=== PATIENT | female | born 1950 | race Caucasian/White ===

== ENCOUNTER → 2019-08-15 12:03 | Outpatient (BNVA) | payer OTHER, SELFPAY | PROVIDERS: Family Provider Family Medicine; Referring Provider Family Medicine; Visit Provider Specialist | DX: S82.832A Other fracture of upper and lower end of left fibula, initial encounter for closed fracture; W19.XXXA Unspecified fall, initial encounter | CPT/HCPCS: 73610 ==

== ENCOUNTER 2019-08-15 13:15 | Outpatient (CLI) | payer OTHER, SELFPAY | END 2019-08-15 13:16 | disposition home or self-care (01) | LOC: SPT 13:16 | PROVIDERS: Family Provider Family Medicine; Visit Provider Specialist | DX: Z46.89 Encounter for fitting and adjustment of other specified devices (principal); S82.62XD Displaced fracture of lateral malleolus of left fibula, subsequent encounter for closed fracture with routine healing; X58.XXXD Exposure to other specified factors, subsequent encounter | CPT/HCPCS: L4361 ==

== ENCOUNTER → 2019-09-02 07:59 | Outpatient (BNVA) | payer OTHER, SELFPAY | PROVIDERS: Family Provider Family Medicine; PCP Family Medicine; Visit Provider Specialist | DX: R29.90 Unspecified symptoms and signs involving the nervous system (principal); R20.0 Anesthesia of skin | CPT/HCPCS: 99204 ==

== ENCOUNTER → 2019-09-03 11:30 | Outpatient (BNVA) | payer OTHER, SELFPAY | PROVIDERS: Family Provider Family Medicine; PCP Family Medicine; Visit Provider Specialist | DX: S82.62XA Displaced fracture of lateral malleolus of left fibula, initial encounter for closed fracture; S82.832A Other fracture of upper and lower end of left fibula, initial encounter for closed fracture | CPT/HCPCS: 73610 ==

== ENCOUNTER 2019-09-03 13:12 | Outpatient (CLI) | payer OTHER, SELFPAY | END 2019-09-03 13:13 | disposition home or self-care (01) | LOC: SPT 13:12 | PROVIDERS: Family Provider Family Medicine; PCP Family Medicine; Visit Provider Specialist | DX: Z46.89 Encounter for fitting and adjustment of other specified devices (principal); S82.832D Other fracture of upper and lower end of left fibula, subsequent encounter for closed fracture with routine healing; X58.XXXD Exposure to other specified factors, subsequent encounter | CPT/HCPCS: L1902 ==

== ENCOUNTER 2019-09-27 10:52 | Outpatient (CLI) | payer OTHER, SELFPAY ==
--- NOTE | 2019-09-27 11:15 | MR_ITS ---
WS: [id number] MRI BRAIN WITHOUT CONTRAST HISTORY: TIA COMPARISON: None available. TECHNIQUE: Diffusion imaging, multiplanar T1, T2 and FLAIR imaging obtained. No evidence for acute infarct or hemorrhage. Lopez-white matter differentiation is normal. There are a few scattered T2 and FLAIR signal hyperintensities in the white matter which are appropriate for the patient's age. No remote or acute infarcts are volume loss. Ventricles and extra-axial spaces are normal. No inferior displacement of cerebellar tonsils. The sella turcica and pituitary gland are unremarkabl e. Posterior fossa is also unremarkable. Dural venous sinuses and [place] demonstrate no abnormality on this unenhanced studies. Paranasal sinuses: Clear. Mastoid air cells: Normal. Calvarium and scalp: Intact. MR/MR head wo con* [id number] IMPRESSION: 1. No evidence for an acute infarct. 2. Minimal, age-appropriate microvascular ischemic changes in the subcortical white matter.
--- NOTE | 2019-09-27 11:15 | MR_ITS ---
WS: [id number] MRA ANGIOGRAPHY [place] HISTORY: Transient ischemic attacks. Numbness LEFT foot. COMPARISON: None available. TECHNIQUE: 3-D MR angiography is performed of the [place]. All images are reviewed including source images. Distal vertebral and basilar arteries are intact with no significant stenosis or plaque. Posterior ce rebral arteries are normal course and caliber. Posterior communicating arteries are small caliber. RI GHT may be absent or hypoplastic. LEFT posterior communicating artery is small but patent. Intracranial portion of the internal carotid arteries are normal course and caliber. No significant a therosclerosis, stenosis or aneurysm identified. Middle and anterior cerebral arteries are both paten t with no significant disease. Anterior communicating artery is also normal. MR/MR angio head wo con [id number] IMPRESSION: Negative MR angiography of [place]. No stenosis, vasculitis or aneurys m.
== END 2019-09-27 10:53 | disposition home or self-care (01) ==
LOC: RADWPI 10:55
PROVIDERS: Family Provider Family Medicine; PCP Family Medicine; Visit Provider Specialist
DX: G45.9 Transient cerebral ischemic attack, unspecified (principal)
CPT/HCPCS: 70544; 70551

== ENCOUNTER → 2019-10-07 10:21 | Outpatient (BNVA) | payer OTHER, SELFPAY | PROVIDERS: Family Provider Family Medicine; PCP Family Medicine; Visit Provider Specialist | DX: S82.62XA Displaced fracture of lateral malleolus of left fibula, initial encounter for closed fracture (principal); S82.832A Other fracture of upper and lower end of left fibula, initial encounter for closed fracture; X58.XXXA Exposure to other specified factors, initial encounter | CPT/HCPCS: 73610 ==

== ENCOUNTER → 2019-11-20 10:46 | Outpatient (BNVA) | payer OTHER, SELFPAY | PROVIDERS: Family Provider Family Medicine; PCP Family Medicine; Visit Provider Specialist | DX: G45.9 Transient cerebral ischemic attack, unspecified (principal); R29.90 Unspecified symptoms and signs involving the nervous system | CPT/HCPCS: G0463 ==

== ENCOUNTER → 2020-02-04 09:59 | Outpatient (BNVA) | payer OTHER, SELFPAY | PROVIDERS: Family Provider Family Medicine; PCP Family Medicine; Visit Provider Specialist | DX: Z53.9 Procedure and treatment not carried out, unspecified reason (principal) | CPT/HCPCS: J1030; J3490 ==

== ENCOUNTER → 2020-02-04 13:49 | Outpatient (BNVA) | payer OTHER, SELFPAY | PROVIDERS: Family Provider Family Medicine; PCP Family Medicine; Visit Provider Specialist | DX: S82.832D Other fracture of upper and lower end of left fibula, subsequent encounter for closed fracture with routine healing (principal); X58.XXXD Exposure to other specified factors, subsequent encounter; G43.109 Migraine with aura, not intractable, without status migrainosus; M79.7 Fibromyalgia; Z86.73 Personal history of transient ischemic attack (TIA), and cerebral infarction without residual deficits | CPT/HCPCS: 20550; 82607; 82746; 83036; 83921; 84155; 84165; 84443; 85651; 95909; 99215; J1030; J3490 ==

== ENCOUNTER 2020-02-04 15:58 | Outpatient (CLI) | payer OTHER, SELFPAY ==
[2020-02-04 17:03] LABS: Thyroid Stimulating Hormone 1.54 uIU/mL (0.27-4.20); Vitamin B12 445 pg/mL (232-1245)
[2020-02-04 17:22] LABS: Folate Level 7.6 ng/mL (4.8-37.3)
[2020-02-04 17:56] LABS: Estmated Average Glucose 123; Hemoglobin A1C 5.9 % (4.0-6.0)
[2020-02-04 18:58] LABS: Erythrocyte Sedimentation Rate 36 mm/hr (0-15)
[2020-02-05 08:02] LABS: PROTEIN, TOTAL 6.9 g/dL (6.1-8.1)
[2020-02-05 15:02] LABS: ALBUMIN 3.6 g/dL (3.8-4.8); ALPHA 1 GLOBULIN 0.4 g/dL (0.2-0.3); ALPHA 2 GLOBULIN 0.8 g/dL (0.5-0.9); BETA 1 GLOBULIN 0.6 g/dL (0.4-0.6); BETA 2 GLOBULIN 0.6 g/dL (0.2-0.5); GAMMA GLOBULIN 1.1 g/dL (0.8-1.7)
[2020-02-09 01:07] LABS: Methylmalonic Acid 149 nmol/L (87-318)
== END 2020-02-04 15:59 | disposition home or self-care (01) ==
LOC: LAB 16:02
PROVIDERS: PCP Family Medicine; Visit Provider Specialist
DX: R20.0 Anesthesia of skin (principal); R20.2 Paresthesia of skin; G62.9 Polyneuropathy, unspecified; R73.9 Hyperglycemia, unspecified
CPT/HCPCS: 82607; 82746; 83036; 83921; 84155; 84165; 84443; 85651

== ENCOUNTER → 2020-04-01 07:52 | Outpatient (BNVA) | payer OTHER, SELFPAY | PROVIDERS: Family Provider Family Medicine; PCP Family Medicine; Visit Provider Specialist | DX: M79.7 Fibromyalgia (principal); G62.9 Polyneuropathy, unspecified; G57.32 Lesion of lateral popliteal nerve, left lower limb | CPT/HCPCS: 20550; 99213; J1030; J3490 ==

== ENCOUNTER 2020-07-06 06:00 | Outpatient (RCR) | payer OTHER, SELFPAY | END 2020-08-05 23:59 | disposition home or self-care (01) | LOC: TPT 06:00 | PROVIDERS: Family Provider Family Medicine; PCP Family Medicine; Referring Provider Specialist; Visit Provider Specialist | DX: M54.30 Sciatica, unspecified side (principal); M54.5 Low back pain | CPT/HCPCS: 97110; 97161 ==

== ENCOUNTER → 2020-07-09 14:44 | Outpatient (BNVA) | payer OTHER, SELFPAY | PROVIDERS: Family Provider Family Medicine; PCP Family Medicine; Visit Provider Specialist | DX: M54.30 Sciatica, unspecified side (principal); M54.5 Low back pain; G62.9 Polyneuropathy, unspecified; M79.7 Fibromyalgia | CPT/HCPCS: 20552; 99214; J3490 ==

== ENCOUNTER 2020-07-09 16:28 | Outpatient (CLI) | payer OTHER, SELFPAY ==
[2020-07-09 17:47] LABS: C Reactive Protein 6.3 mg/L (0.0-4.9)
[2020-07-09 18:06] LABS: Folate Level 15.3 ng/mL (4.8-37.3)
[2020-07-09 18:10] LABS: Estmated Average Glucose 111; Hemoglobin A1C 5.5 % (4.0-6.0)
[2020-07-09 18:11] LABS: Thyroid Stimulating Hormone 3.19 uIU/mL (0.27-4.20)
[2020-07-09 22:13] LABS: Vitamin B12 322 pg/mL (232-1245)
[2020-07-16 09:32] LABS: Methylmalonic Acid 166 nmol/L (87-318)
== END 2020-07-09 17:00 | disposition home or self-care (01) ==
LOC: LAB 07-10 08:31
PROVIDERS: Family Provider Family Medicine; PCP Family Medicine; Visit Provider Specialist
DX: Z00.00 Encounter for general adult medical examination without abnormal findings (principal); R20.0 Anesthesia of skin; R20.2 Paresthesia of skin
CPT/HCPCS: 36415; 82607; 82746; 83036; 83921; 84260; 84443; 86140; 86431

== ENCOUNTER → 2020-07-24 09:31 | Outpatient (BNVA) | payer OTHER, SELFPAY | PROVIDERS: Family Provider Family Medicine; PCP Family Medicine; Referring Provider Specialist; Visit Provider Anesthesiology Pain Medicine | DX: M47.816 Spondylosis without myelopathy or radiculopathy, lumbar region (principal) | CPT/HCPCS: 99204 ==

== ENCOUNTER 2020-07-31 10:37 | Outpatient (CLI) | payer OTHER, SELFPAY ==
--- NOTE | 2020-07-31 11:00 | MR_ITS ---
WS: [id number] MRI LUMBAR SPINE NONCONTRAST HISTORY: M54.5 - Low back pain COMPARISON: None available. TECHNIQUE: Sagittal and axial multisequence imaging is submitted. Mild increase in thoracic kyphosis. T11 hemangioma. Less than 2 mm anterolisthesis of L3. Disc spaces and vertebral body heights are well-preserved. Conus terminates normally at L1-2 disc level. Seen best on the STIR sequence in the T1 sequence is abnormal signal in the sacrum. Only a small port ion of the sacrum is included but there is abnormal signal beginning in the S1 vertebral body extendi ng through at least a length of 7.7 cm on the RIGHT. Similar findings but to a much lesser extent inv olving the LEFT sacrum. L1-L2: Normal. L2-L3: Mild annular disc bulge with mild ligamentum flavum disease. L3-L4: Mild annular disc bulging with moderate ligamentum flavum disease. Mild narrowing of the centr al canal and subarticular recesses. No high-grade stenosis. L4-L5: Diffuse annular disc bulge. There is a very shallow LEFT foraminal disc protrusion without ner ve root contact. Mild ligamentum flavum hypertrophy resulting in mild central stenosis. L5-S1: Mild annular disc bulge and facet arthritis. Small amount of fluid in the facet joints. Atherosclerotic changes within the aorta. Small bilateral parapelvic cysts. No adenopathy within the pelvis. MR/MR lumbar spine wo con* [id number] IMPRESSION: 1. No significant central or foraminal stenosis. There is very mild central st enosis at L3-4 and L4-5. 2. Abnormal signal within the sacrum, greatest on the RIGHT. Very small portio n of the sacrum is included on this examination. Further evaluation to exclude sacral insufficiency fracture or tumor is recommended. Etiologies to consider a re follow-up sacral MRI with and without contrast, bone scan imaging or CT.
== END 2020-07-31 10:38 | disposition home or self-care (01) ==
LOC: RADSHAW 10:40
PROVIDERS: Family Provider Family Medicine; PCP Family Medicine; Visit Provider Specialist
DX: M54.5 Low back pain (principal); M48.061 Spinal stenosis, lumbar region without neurogenic claudication
CPT/HCPCS: 72148

== ENCOUNTER 2020-08-06 06:00 | Outpatient (RCR) | payer OTHER, SELFPAY | END 2020-09-01 23:00 | disposition home or self-care (01) | LOC: TPT 06:00 | PROVIDERS: Family Provider Family Medicine; PCP Family Medicine; Referring Provider Specialist; Visit Provider Specialist | DX: M54.30 Sciatica, unspecified side (principal); M54.5 Low back pain | CPT/HCPCS: 97110 ==

== ENCOUNTER 2020-08-31 07:49 | Outpatient (CLI) | payer OTHER, SELFPAY ==
--- NOTE | 2020-08-31 07:51 | MR_ITS ---
WS: [id number] MRI SACRUM with and without CONTRAST. COMPARISON: Lumbar spine MRI 07/31/2020 Multiplanar, multisequence imaging is performed with and without contrast. Abnormal signal within the RIGHT sacrum. There is low signal on the T1 sequences with increased signa l on the T2 and STIR sequences involving a large portion of the sacrum extending over length of at le ast 9.5 cm x 3.6 cm. Abnormal signal begins in the superior sacrum and extends inferiorly along the S I joint. Normal signal in the LEFT sacrum. On the postcontrast sequences there is enhancement diffuse ly throughout this abnormal signal. There is no soft tissue mass or widening of the SI joint. No rhea tional signal abnormalities within the visualized bones. MR/MR sacrum wo/w con [id number] IMPRESSION: 1. Abnormal signal involving the RIGHT sacrum. Favor this is probably due to u nilateral RIGHT vertical sacral insufficiency fracture. There is some enhanceme nt which can be seen post fracture or with neoplasm. Cannot completely exclude a bone lesion. 2. No additional signal abnormalities within the visualized bone. No expansile soft tissue mass.
== END 2020-08-31 07:50 | disposition home or self-care (01) ==
LOC: RADSHAW 07:50
PROVIDERS: PCP Family Medicine; Visit Provider Specialist
DX: R93.89 Abnormal findings on diagnostic imaging of other specified body structures (principal)
CPT/HCPCS: 72158; A9579

== ENCOUNTER 2020-09-09 08:06 | Outpatient (CLI) | payer OTHER, SELFPAY ==
--- NOTE | 2020-09-09 08:12 | CT_ITS ---
WS: [id number] NONCONTRAST AND CONTRAST-ENHANCED CT OF THE LUMBAR SPINE. TECHNIQUE: Noncontrast and contrast-enhanced CT lumbar spine with coronal and sagittal reformatted im ages. CLINICAL INFORMATION: R93.89 - Abnormal findings on diagnostic imaging of other... COMPARISON: MRI July 31, 2020 and August 31, 2020 DLP: 4968.[address] scans at [facility] use at least one of these dose optimization techniques: automat ed exposure control; mA and/or kV adjustment per patient size (includes targeted exams where dose is matched to clinical indication); or iterative reconstruction. FINDINGS: Mild lumbar curve. Slight anterolisthesis L3 on L4 and L4 on L5. No high-grade central canal stenosis . No acute compression fractures. Mild lumbar curve convex left. Prior sacral MRI reviewed. Lucency and sclerosis in the right aspect of the sacrum consistent with ri ght sacral insufficiency fractures. No soft tissue or bony mass to suggest neoplasm. Diffuse osteopen ia. L1-L2: Normal. L2-L3: Moderate facet arthropathy. Mild left and no significant right foraminal narrowing. Spinal can al is patent. L3-L4: Slight anterolisthesis L3 on L4. Narrowing of the left subarticular recess. Foramen are patent . Moderate facet arthropathy. L4-L5: Slight anterolisthesis. Mild central canal stenosis. Advanced facet arthropathy. L5-S1: Tiny shallow central protrusion. Spinal canal and foramen are patent. Moderate facet arthropat hy. Sigmoid diverticulosis. CT/CT lumbar spine wo/w con [id number] IMPRESSION: 1. Right sacral findings compatible with insufficiency fractures as seen on th e recent MRI. No evidence of soft tissue or bony neoplasm. 2. Osteopenia. 3. Stable slight anterolisthesis L3 on L4 and L4 on L5. 4. Mild central canal stenosis L4-5. 5. No significant foraminal narrowing. 6. Tiny central protrusion L5-S1 with slight effacement of ventral thecal sac. 7. Moderate to advanced facet arthropathy L3-L4 and L4-L5.
[2020-09-09 10:01] LABS: Blood Urea Nitrogen 14 mg/dL (8-23); Glomerular Filtration Rate 71.5 mL/min (90-130)
[2020-09-09] MEDS: iohexol 300 mg/mL 100 mL Btl IV (10:17)
== END 2020-09-09 08:07 | disposition home or self-care (01) ==
LOC: RADWPI 09:16 → RAD 09:27
PROVIDERS: PCP Family Medicine; Visit Provider Specialist
DX: R93.89 Abnormal findings on diagnostic imaging of other specified body structures (principal); M47.816 Spondylosis without myelopathy or radiculopathy, lumbar region; M51.27 Other intervertebral disc displacement, lumbosacral region; M48.061 Spinal stenosis, lumbar region without neurogenic claudication; M85.88 Other specified disorders of bone density and structure, other site
CPT/HCPCS: 72133; 82565; 84520

== ENCOUNTER 2021-07-21 15:12 | Emergency (ER) | payer OTHER, SELFPAY ==
[2021-07-21 15:30] VITALS: PULSE 85; RESP 16; TEMP 36.8; O2SAT 98; BMI 37.0
--- NOTE | 2021-07-21 15:44 | XRR_ITS ---
PROCEDURE INFORMATION: Exam: XR Right Knee Exam date and time: 07/21/2021 3:44 PM Age: 70 years old Clinical indication: Injury or trauma; Fall; Work related; Blunt trauma; Right; Injury date: 07/21/21; Injury details: Fell at work landing on RT side, but rolled to left. Pain in neck, left hip and RT knee. ; Prior surgery; Surgery type: Hyst, splenectomy, , gb TECHNIQUE: Imaging protocol: XR Right knee. Views: 3 views. COMPARISON: No relevant prior studies available. FINDINGS: Bones/joints: Osseous structures are intact. Negative for fracture. Mild joint space narrowing of the medial compartment with focal osteochondral defect measuring 7 mm in size within the central articulating cartilage of the medial femoral condyle. Soft tissues: Normal. XR/XR knee RT 3V* [id number] IMPRESSION: 1. No acute findings. 2. 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
--- NOTE | 2021-07-21 15:44 | XRR_ITS ---
PROCEDURE INFORMATION: Exam: XR Cervical Spine Exam date and time: 07/21/2021 3:44 PM Age: 70 years old Clinical indication: Injury or trauma; Fall; Work related; Blunt trauma; Injury date: 07/21/21; Injury details: Fell at work landing on RT side, but rolled to left. Pain in neck, left hip and RT knee. ; Prior surgery; Surgery type: Hyst, splenectomy, csection, gb TECHNIQUE: Imaging protocol: XR of the cervical spine. Views: 2 or 3 views. COMPARISON: MR head wo con* [id number] 09/27/2019 11:32 AM FINDINGS: Bones/joints: No acute fracture. Normal alignment. Mild disc space narrowing and endplate degenerative changes involving the C5-C7 segment. Soft tissues: Unremarkable. XR/XR cervical spine 3V* [id number] IMPRESSION: No acute findings.
--- NOTE | 2021-07-21 15:44 | XRR_ITS ---
PROCEDURE INFORMATION: Exam: XR Left Hip Exam date and time: 07/21/2021 3:44 PM Age: 70 years old Clinical indication: Injury or trauma; Fall; Blunt trauma (contusions or hematomas); Injury date: 07/21/21; Injury details: Fell at work landing on RT side, but rolled to left. Pain in neck, left hip and RT knee. ; Prior surgery; Surgery type: Hyst, splenectomy, , gb TECHNIQUE: Imaging protocol: XR Left hip. Views: 2 or 3 views hip with pelvis when performed. COMPARISON: MR sacrum wo/w con [id number] 08/31/2020 8:52 AM FINDINGS: Bones/joints: No acute fracture. Mild joint space narrowing of the left hip. Soft tissues: Unremarkable. XR/XR hip LT 2-3V wo/w pel* [id number] IMPRESSION: No acute findings.
--- NOTE | 2021-07-21 15:51 | ED_ITS ---
HPI - Fall General: Chief Complaint: Fall Stated Complaint: workman's comp, fell Time Seen by Provider: 07/21/21 15:40 History of Present Illness: Patient was at work today and tripped over a box falling forward on the floor patient says she has left hip pain right knee pain did land on her right elbow and did have pain earlier but not presently and also has neck pain. Deniesany loss of consciousness is able ambulate. Associated symptoms-after fall: Reports neck pain; Denies abdominal pain, chest pain or headache(s) Review of Systems Const: Denies: fever(s), chills or body aches Eyes: Denies: eye discomfort ENMT: Denies: throat pain Card: Denies: chest pain Resp: Denies: dyspnea GI: Denies: abdominal pain, nausea or vomiting Musc: Reports: neck pain and joint pain (Right knee and left hip, elbow hurt earlier but feels better now) Skin/Breast: Denies: rash Neuro: Denies: headache(s) Psych: Denies: depression or suicidal ideation [facility] ED PFSH: Medical History (Updated 07/21/21 @ 16:27 by DICKSON Wilde) Esophageal stricture Surgical History History of splenectomy Hx of cholecystectomy Hx of hysterectomy Family History Father CAD (coronary artery disease) Brother CAD (coronary artery disease) Cancer Social History Smoking and tobacco status: never smoked Alcohol intake: never History of recent travel: No Physical Exam Const: COMMON NORMALS: no acute distress, patient oriented x3 and alert HENMT: COMMON NORMALS: normocephalic and external ears normal HEAD & SCALP: normocephalic EXTERNAL EAR: Yes external ears normal Eye: COMMON NORMALS: EOMs intact bilaterally Neck/C-Spine: COMMON NORMALS: no JVD GENERAL: Yes normal visual inspection CERVICAL SPINE: Yes cervical ROM normal, No pain with cervical ROM, No Cervical spine tenderness and No Paracervical muscle tenderness Resp: COMMON NORMALS: normal respiratory effort and No use of accessory muscles Cardio: COMMON NORMALS: no JVD GI: INSPECTION: Yes normal to inspection Extremity: COMMON NORMALS: normal to inspection and full ROM NARRATIVE EXTREMITY EXAM: Patient has tenderness to the right knee without swelling, has tenderness to the left hip lower anterior aspect. Is able stand hurts with ambulation. Right elbow appears I am bruising swelling has full range of motion. Neuro: COMMON NORMALS: patient oriented x3 SENSORIUM/ORIENTATION: Yes alert Psych: COMMON NORMALS: mental status grossly normal Skin: COMMON NORMALS: no rashes or lesions noted GENERAL SKIN EXAM: no rashes or lesions noted Course Vital Signs: Vital signs: Vital Signs Temperature 98.3 F 07/21/21 15:30 Pulse Rate 85 07/21/21 15:30 Respiratory Rate 16 07/21/21 15:30 Pulse Oximetry 98 07/21/21 15:30 MDM - Fall Medical Decision Making Patient presents here with a fall with multiple areas that are tender after tripping over a box at work today. Radiology studies all negative for concerning findings. Patient released go back to work. Work comp forms filled out. Work was contacted about the need for drug screen and HOME was contacted. Lab Data Radiology Impressions Cervical Spine X-Ray 07/21/21 15:44 IMPRESSION: No acute findings. Hip/Pelvis X-Ray 07/21/21 15:44 IMPRESSION: No acute findings. Knee X-Ray 07/21/21 15:44 IMPRESSION: 1. No acute findings. 2. 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 Discharge Plan Discharge Patient Disposition: Home Clinical Impression: Fall, Multiple contusions Condition: Stable Prescriptions: New tramadol 50 mg tablet 50 mg PO TID PRN (Reason: pain) Qty: 7 0RF No Action hydroxyurea 500 mg capsule 500 mg PO DAILY 0RF zolpidem PO 0RF ropinirole PO 0RF Blood Pressure medication PO 0RF Rx Instructions: does not know strength or name anagrelide 1 mg capsule 1 mg PO Q12H 0RF lansoprazole [Prevacid] 15 mg capsule,delayed release(DR/EC) 30 mg PO DAILY 0RF meloxicam 15 mg tablet 15 mg PO DAILY 0RF (DME) Lace up ankle brace Qty: 1 0RF Rx Instructions: As directed Discharge Orders: Discharge ED (Routine); Ordered 07/21/21 Ordered By: Olivier Agosot Referrals: Cal Bernard MD [Primary Care Provider] - Discharge Diet: Usual diet Discharge Activity: Increase activity as tolerated Patient Instructions: Contusion in Adults (ED) Activity Restrictions/Additional Instructions: Follow-up with medical provider as directed. Take medications as prescribed. Return to the ER or your medical provider if condition worsens. Please read and understand discharge instructions. If any questions ask please. Coding Level of Care Code ED Nurse Aide Evaluator for Vicki Fwd Exam Comprehensive
== END 2021-07-21 16:52 | disposition home or self-care (01) ==
PROVIDERS: Emergency Provider Nurse Practitioner Family; PCP Family Medicine
DX: T14.8XXA Other injury of unspecified body region, initial encounter (principal); W18.09XA Striking against other object with subsequent fall, initial encounter; Y99.0 Civilian activity done for income or pay
CPT/HCPCS: 72040; 73502; 73562; 99281

== ENCOUNTER 2022-09-16 15:40 | Emergency (ER) | payer MEDICARE, SELFPAY ==
--- NOTE | 2022-09-16 15:42 | ECG_ITS ---
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 Measurements Intervals [place] Rate: 85 P: 39 AK: 164 QRS: -23 QRSD: 85 T: 54 QT: 356 QTc: 425 Interpretive Statements SINUS RHYTHM BORDERLINE LEFT AXIS DEVIATION [QRS AXIS < -20] No previous ECG available for comparison Electronically Signed On 09-16-2022 21:36:00 CDT by Catrachito Wharton M.D. [email or web address] centerXray Imatekour [facility] [id number]
[2022-09-16 15:50] VITALS: BP 138/93; PULSE 98; RESP 15; TEMP 36.8; O2SAT 95; BMI 38.7
[2022-09-16 16:17] LABS: Basophils # 0.1 10^3/uL (0.0-0.1); Basophils % 0.5 %; Eosinophils # 0.1 10^3/uL (0.0-0.8); Eosinophils % 0.4 %; Hematocrit 46.2 % (37.0-47.0); Hemoglobin 15.2 g/dL (11.5-15.3); Lymphocytes # 2.9 10^3/uL (0.8-4.8); Mean Corpuscular HGB Conc 32.9 g/dL (30.0-36.0); Mean Corpuscular Hemoglobin 35.8 pg (28.0-34.0); Mean Platelet Volume 9.7 fL (7.4-10.4); Monocytes # 0.7 10^3/uL (0.2-0.9); Monocytes % 4.1 %; Neutrophils # 12.31 10^3/uL (1.8-7.7); Neutrophils % 76.4 %; Nucleated Red Blood Cells % 0 %; Platelet Count 448 10^3/cmm (130-400); Red Blood Count 4.24 10^6/uL (4.1-5.3); Red Cell Distribution Width 14.1 % (12.1-15.1); White Blood Count 16.1 10^3/uL (4.0-10.0)
[2022-09-16 16:34] VITALS: BP 138/90; PULSE 90; O2SAT 98
--- NOTE | 2022-09-16 16:38 | W.ED.ABDPA2 ---
HPI - Abdominal Pain General: Chief Complaint: Abdominal Pain Stated Complaint: Abd pain Time Seen by Provider: 09/16/22 16:27 Source: patient Mode of arrival: ambulatory History of Present Illness: 71-year-old female presents to the emergency room complaining of abdominal pain and cramping mostly periumbilical. She states it began last night its been persistent and worsening somewhat. COVID COVID to go there waves. They did a flat and upright there evidently there is no evidence of bowel obstruction. She has not had any vomiting or diarrhea but has been very nauseous. She has some low back pain as well she denies any dysuria urgency or frequency or fever no hematochezia melena hematemesis coffee-ground's or hematuria. MD elicited complaint: abdominal pain Onset (ago): day(s) (1) Pain Consistency: constant Location: Periumbilical Severity: moderate Quality: cramping Radiation: none Exacerbating factors: nothing Relieving factors: nothing Associated Symptoms: Denies anorexia, belching, bloating, change in bowel habits, change in stool character, chills, coffee ground emesis, constipation, GI cramping, diarrhea, dyspepsia, dysuria, excessive flatus, fever(s), heartburn, hematochezia, hematuria, hematemesis, fecal incontinence, loose stools, melena, nausea, poor appetite, syncope and vomiting Review of Systems Const: Denies: fever(s), chills, fatigue or malaise ENMT: Denies: throat pain, ear or mastoid pain, nasal discharge or nasal congestion Card: Denies: chest pain, palpitations, irregular heart rhythm or syncope Resp: Denies: dyspnea, productive cough or non-productive cough GI: Reports: abdominal pain; Denies: nausea, vomiting, hematemesis, coffee ground emesis, heartburn, diarrhea, constipation, bloating, GI cramping, belching, excessive flatus, fecal incontinence, change in bowel habits, change in stool character, hematochezia or melena : Denies: dysuria, urinary frequency, urinary urgency or hematuria Skin/Breast: Denies: rash or pruritus PFS ED PFSH: Medical History (Updated 09/16/22 @ 18:24 by Sebastian Angulo DO) Esophageal stricture Surgical History History of splenectomy Hx of cholecystectomy Hx of hysterectomy Family History Father CAD (coronary artery disease) Brother CAD (coronary artery disease) Cancer Social History Smoking and tobacco status: never smoked Alcohol intake: never Substance/Drug Use: never Physical Exam Const: GENERAL APPEARANCE: cooperative and comfortable ORIENTATION/CONSCIOUSNESS: Yes awake, Yes oriented to person, Yes oriented to place and Yes oriented to time HENMT: COMMON NORMALS: normocephalic, atraumatic and hearing grossly normal bilaterally HEAD & SCALP: normocephalic and atraumatic Resp: COMMON NORMALS: normal respiratory effort, No retractions, No use of accessory muscles and clear to auscultation bilaterally AUSCULTATION: clear to auscultation bilaterally Cardio: COMMON NORMALS: regular rate, regular rhythm and No murmurs present (Cardio) RATE: regular rate RHYTHM: regular rhythm GI: COMMON NORMALS: No hepatosplenomegaly present AUSCULTATION: Yes normoactive bowel sounds PALPATION: Yes Tenderness to palpation present (GI) (Periumbilical), No Guarding due to palpation present (GI) and Yes No hepatosplenomegaly present Extremity: COMMON NORMALS: normal to inspection, capillary refill normal, no clubbing, cyanosis or edema, no calf tenderness and no pedal edema Neuro: SENSORIUM/ORIENTATION: Yes oriented to person, Yes oriented to place and Yes oriented to time Skin: COMMON NORMALS: no rashes or lesions noted GENERAL SKIN EXAM: no rashes or lesions noted Course Vital Signs: Vital signs: Vital Signs Temperature 98.3 F 09/16/22 15:50 Pulse Rate 83 09/16/22 18:38 Respiratory Rate 15 09/16/22 15:50 Blood Pressure 127/88 09/16/22 18:38 Pulse Oximetry 96 09/16/22 18:38 Oxygen Delivery Me thod Room Air 09/16/22 15:50 MDM - Abdominal Pain Medical Decision Making CT negative for acute pathology no evidence of diverticulitis perforation or mass. There is no evidence of stone or hydronephrosis pyelonephritis. Labs reviewed. CT did show evidence of mild gastroenteritis. Abdominal exam continues to be diffusely tender but there is no guarding nonsurgical abdomen. Liquid diet use antiemetics as needed advance diet as tolerated. Medical Records I reviewed the patient's medical records. Lab Data I reviewed the patient's lab results. 09/16/22 16:05 09/16/22 16:05 Labs/Radiology: Radiology Impressions Abdomen/Pelvis CT 09/16/22 16:40 IMPRESSION: 1. Fluid-filled stomach and small bowel loops without pathologic distention to indicate obstruction. Findings are nonspecific but could be indicative of gastroenteritis. 2. 7 mm nodule noted at the right lung base. Per Fleischner criteria a follow-up CT at 6-12 months is recommended, then consider additional CT at 18-24 months. Laboratory Results WBC 16.1 10^3/uL (4.0-10.0) H 09/16/22 16:05 RBC 4.24 10^6/uL (4.1-5.3) 09/16/22 16:05 Hgb 15.2 g/dL (11.5-15.3) 09/16/22 16:05 Hct 46.2 % (37.0-47.0) 09/16/22 16:05 MCV 109.0 fl (81-99) H 09/16/22 16:05 MCH 35.8 pg (28.0-34.0) H 09/16/22 16:05 MCHC 32.9 g/dL (30.0-36.0) 09/16/22 16:05 RDW 14.1 % (12.1-15.1) 09/16/22 16:05 Plt Count 448 10^3/cmm (130-400) H 09/16/22 16:05 MPV 9.7 fL (7.4-10.4) 09/16/22 16:05 Neut % (Auto) 76.4 % 09/16/22 16:05 Lymph % (Auto) 18.0 % 09/16/22 16:05 [place] % (Auto) 4.1 % 09/16/22 16:05 Eos % (Auto) 0.4 % 09/16/22 16:05 Baso % (Auto) 0.5 % 09/16/22 16:05 Neut # (Auto) 12.31 10^3/uL (1.8-7.7) H 09/16/22 16:05 Lymph # (Auto) 2.9 10^3/uL (0.8-4.8) 09/16/22 16:05 [place] # (Auto) 0.7 10^3/uL (0.2-0.9) 09/16/22 16:05 Eos # (Auto) 0.1 10^3/uL (0.0-0.8) 09/16/22 16:05 Baso # (Auto) 0.1 10^3/uL (0.0-0.1) 09/16/22 16:05 Nucleated RBC % (auto) 0 % 09/16/22 16:05 Nucleated RBCs # 0.0 /100WBC 09/16/22 16:05 Sodium 139 mmol/L (136-145) 09/16/22 16:05 Potassium 4.9 mmol/L (3.5-5.1) 09/16/22 16:05 Chloride 99 mmol/L (98-107) 09/16/22 16:05 Carbon Dioxide 26 mmol/L (22-29) 09/16/22 16:05 Anion Gap 18.9 (5-19) 09/16/22 16:05 BUN 16 mg/dL (8-23) 09/16/22 16:05 Creatinine 0.9 mg/dL (0.5-0.9) 09/16/22 16:05 GFR Calculation 62.1 mL/min (90-130) L 09/16/22 16:05 Glucose 107 mg/dL (65-115) 09/16/22 16:05 Calculated Osmolality 290 mOsm/kg (285-295) 09/16/22 16:05 Calcium 9.3 mg/dL (8.5-10.5) 09/16/22 16:05 Total Bilirubin 0.2 mg/dL (0.15-1.2) 09/16/22 16:05 AST 13 U/L (0-32) 09/16/22 16:05 ALT 10 U/L (0-33) 09/16/22 16:05 Alkaline Phosphatase 111 U/L (35-105) H 09/16/22 16:05 Troponin T Baseline 6 ng/L (0-10) 09/16/22 16:05 Total Protein 7.1 g/dL (6.6-8.7) 09/16/22 16:05 Albumin 4.1 g/dL (3.5-5.2) 09/16/22 16:05 Globulin 3.0 g/dL (1.3-4.6) 09/16/22 16:05 Lipase 20 U/L (13-60) 09/16/22 16:05 Urine Color Yellow (Yellow) 09/16/22 17:21 Urine Appearance Clear (CLEAR) 09/16/22 17:21 Urine pH 5 (5-7) 09/16/22 17:21 Ur Specific [place] 1.030 (1.005-1.030) 09/16/22 17:21 Urine Protein Neg (Negative) 09/16/22 17:21 Urine Glucose (UA) Norm (Normal) 09/16/22 17:21 Urine Ketones 1+ (Negative) H 09/16/22 17:21 Urine Blood Neg (Negative) 09/16/22 17:21 Urine Nitrate Negative (Negative) 09/16/22 17:21 Urine Bilirubin 1+ (Negative) H 09/16/22 17:21 Urine Urobilinogen Norm mg/dL (Negative) 09/16/22 17:21 Ur Leukocyte Esterase Negative (Negative) 09/16/22 17:21 Discharge Plan Discharge Patient Disposition: Home Clinical Impression: Gastroenteritis Condition: Stable Prescriptions: New promethazine 25 mg tablet 25 mg PO Q6H PRN (Reason: nausea and vomiting) Qty: 20 0RF No Action hydroxyurea 500 mg capsule 500 mg PO DAILY zolpidem PO ropinirole PO Blood Pressure medication PO Rx Instructions: does not know strength or name anagrelide 1 mg capsule 1 mg PO Q12H lansoprazole [Prevacid] 15 mg capsule,delayed release(DR/EC) 30 mg PO DAILY meloxicam 15 mg tablet 15 mg PO DAILY (DME) Lace up ankle brace Qty: 1 0RF Rx Instructions: As directed tramadol 50 mg tablet 50 mg PO TID PRN (Reason: pain) Qty: 7 0RF Discharge Orders: Discharge ED (Routine); Ordered 09/16/22 Ordered By: Sebastian Angulo Referrals: Jannet Oates APRN [Primary Care Provider] - Discharge Diet: Clear Liquid Discharge Activity: Resume usual activity Patient Instructions: Gastroenteritis (ED), Opioid Safety, Pain Management Coding Level of Care Code ED Network Support Specialist for Vicki Bernal
--- NOTE | 2022-09-16 16:40 | CTR_ITS ---
PROCEDURE INFORMATION: Exam: CT Abdomen And Pelvis Without Contrast Exam date and time: 09/16/2022 4:58 PM Age: 71 years old Clinical indication: Abdominal pain; Generalized; Prior surgery; Surgery date: 6+ months; Surgery type: Csection, hysterectomy, gb, spleen; Patient HX: Blood CA TECHNIQUE: Imaging protocol: Computed tomography of the abdomen and pelvis without contrast. Radiation optimization: All CT scans at this facility use at least one of these dose optimization techniques: automated exposure control; mA and/or kV adjustment per patient size (includes targeted exams where dose is matched to clinical indication); or iterative reconstruction. REPORTING DATA: Count of CT and Cardiac NM exams in prior 12 months: This patient has received 0 known CTs and 0 known cardiac nuclear medicine studies in the 12 months prior to the current study. COMPARISON: CR XR hip LT 2-3V wo/w pel* [id number] 07/21/2021 4:00 PM RADIATION DOSE METRICS: Total DLP (mGy-cm): 791.49 FINDINGS: Lungs: There is a 7 mm rounded nodule within the right lung base abutting the right hemidiaphragm as best seen on series 3, image 9. Liver: Normal. No mass. Gallbladder and bile ducts: Cholecystectomy. No ductal dilation. Pancreas: Normal. No ductal dilation. Spleen: Multiple surgical clips/embolization coils noted in the region of the spleen. There is either an atrophied spleen or splenectomy with prominent splenules in this region. Adrenal glands: Normal. No mass. Kidneys and ureters: No renal stones. No hydronephrosis. Stomach and bowel: Colonic diverticulosis without findings of acute diverticulitis. Fluid-filled stomach and small bowel loops without pathologic distention to indicate obstruction. There is also fluid in the distal esophagus. Appendix: No evidence of appendicitis. Intraperitoneal space: No free air. No significant fluid collection. Vasculature: No abdominal aortic aneurysm. Lymph nodes: No enlarged lymph nodes. Urinary bladder: Unremarkable as visualized. Reproductive: Hysterectomy. Bones/joints: No acute fracture. Soft tissues: Unremarkable. CT/CT abdomen pelvis wo con [id number] IMPRESSION: 1. Fluid-filled stomach and small bowel loops without pathologic distention to indicate obstruction. Findings are nonspecific but could be indicative of gastroenteritis. 2. 7 mm nodule noted at the right lung base. Per Fleischner criteria a follow-up CT at 6-12 months is recommended, then consider additional CT at 18-24 months.
[2022-09-16 16:55] LABS: Troponin(5th) Baseline 6 ng/L (0-10)
[2022-09-16 16:58] LABS: Alanine Aminotransferase 10 U/L (0-33); Albumin Level 4.1 g/dL (3.5-5.2); Alkaline Phosphatase 111 U/L (35-105); Anion Gap 18.9 (5-19); Aspartate Amino Transferase 13 U/L (0-32); Blood Urea Nitrogen 16 mg/dL (8-23); Calcium 9.3 mg/dL (8.5-10.5); Carbon Dioxide 26 mmol/L (22-29); Chloride 99 mmol/L (98-107); Creatinine Clr Calc Pharmacy 58.8826; Glomerular Filtration Rate 62.1 mL/min (90-130); Glucose 107 mg/dL (65-115); Lipase 20 U/L (13-60); Osmolality Calculated 290 mOsm/kg (285-295); Potassium 4.9 mmol/L (3.5-5.1); Sodium 139 mmol/L (136-145); Total Bilirubin 0.2 mg/dL (0.15-1.2); Total Protein 7.1 g/dL (6.6-8.7)
[2022-09-16 17:25] VITALS: BP 136/83; PULSE 90; O2SAT 96
[2022-09-16 17:28] LABS: Add Urine Microscopic? NO; Charge for UA Resulting for Rev
[2022-09-16 17:32] LABS: Glucose Urine UA Norm (Normal); Protein Urine Neg (Negative); Urine Appearance Clear (CLEAR); Urine Color Yellow (Yellow); pH Urine 5 (5-7)
[2022-09-16 17:33] LABS: Bilirubin Urine 1+ (Negative); Blood Urine Neg (Negative); Ketones Urine 1+ (Negative); Leukocyte Esterase Urine Negative (Negative); Nitrate Urine Negative (Negative); Urobilinogen Urine Norm (Negative)
--- NOTE | 2022-09-16 17:42 | ECG_ITS ---
[facility] Test Date: 2022-09-16 Pat Name: Kaylyn Groves Department: Room: Gender: Female Call Worker Person: : 1950 Requested By: Noam Jiménez Order Number: [id number] David MD: Catrachito Wharton M.D. Measurements Intervals [place] Rate: 75 P: 46 [place]: 178 QRS: -17 QRSD: 98 T: 56 QT: 366 QTc: 410 Interpretive Statements SINUS RHYTHM Compared to ECG 09/16/2022 16:28:00 No significant changes Electronically Signed On 09-16-2022 21:38:13 CDT by Catrachito Wharton M.D. [email or web address]aksAncancopromed[facility]led[facility] hospitalgoDog Fetch/store/OM/[id number]
[2022-09-16] MEDS: morphine 4 mg/mL SDV 1 mL IVP (18:32)
[2022-09-16 18:38] VITALS: BP 127/88; PULSE 83; O2SAT 96
== END 2022-09-16 18:40 | disposition home or self-care (01) ==
PROVIDERS: Nurse Practitioner Family; Emergency Provider Family Medicine; PCP Nurse Practitioner Family
DX: K52.9 Noninfective gastroenteritis and colitis, unspecified (principal)
CPT/HCPCS: 36415; 74176; 80053; 81003; 83690; 84484; 85025; 93005; 96374; 99285; J2270

== ENCOUNTER → 2023-04-24 08:40 | Outpatient (BNVA) | payer MEDICARE, SELFPAY | PROVIDERS: PCP Nurse Practitioner Family; Visit Provider Specialist | DX: M17.12 Unilateral primary osteoarthritis, left knee; Z46.89 Encounter for fitting and adjustment of other specified devices; M25.562 Pain in left knee | CPT/HCPCS: 20610; 73560; 73565; 97760; 99204; J1100; J2795; J3301; L1812 ==

== ENCOUNTER 2023-04-24 11:42 | Outpatient (CLI) | payer MEDICARE, SELFPAY | END 2023-04-24 11:43 | disposition home or self-care (01) | LOC: SPT 11:42 | PROVIDERS: PCP Nurse Practitioner Family; Visit Provider Specialist | DX: Z46.89 Encounter for fitting and adjustment of other specified devices (principal); M25.562 Pain in left knee; M17.12 Unilateral primary osteoarthritis, left knee | CPT/HCPCS: 20610; 97760; 99204; J1100; J2795; J3301; L1812 ==

== ENCOUNTER 2023-05-26 06:00 | Outpatient (RCR) | payer MEDICARE, SELFPAY | END 2023-06-07 23:59 | disposition home or self-care (01) | LOC: TPT 06:00 | PROVIDERS: Visit Provider Specialist | DX: M25.562 Pain in left knee (principal) | CPT/HCPCS: 97110; 97162 ==

== ENCOUNTER 2023-07-07 06:00 | Outpatient (RCR) | payer MEDICARE, SELFPAY | END 2023-08-06 23:59 | disposition home or self-care (01) | LOC: TPT 06:00 | PROVIDERS: Visit Provider Specialist | DX: M25.562 Pain in left knee (principal) | CPT/HCPCS: 97110 ==

== ENCOUNTER → 2023-07-26 12:44 | Outpatient (BNVA) | payer MEDICARE, SELFPAY | PROVIDERS: Visit Provider Specialist | DX: M17.12 Unilateral primary osteoarthritis, left knee (principal) | CPT/HCPCS: 20610; J1100; J2795; J3301 ==

== ENCOUNTER 2023-08-01 12:11 | Emergency (ER) | payer MEDICARE, SELFPAY ==
--- NOTE | 2023-08-01 12:15 | ECG_ITS ---
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 Measurements Intervals [place] Rate: 53 P: -6 [place]: 182 QRS: 5 QRSD: 109 T: 36 QT: 414 QTc: 390 Interpretive Statements SINUS BRADYCARDIA No previous ECG available for comparison Electronically Signed On 08-02-2023 23:43:58 CDT by Charly Bloom M.D. [email or web address].[place]/store/OM/[id number]
--- NOTE | 2023-08-01 12:15 | XR_ITS ---
WS: [id number] Exam: XR chest 1V portable [id number] Date/Time of Exam: 08/01/2023 1:25 PM Reason For Exam: cp Exam: XR chest 1V portable [id number] Date/Time of Exam: 08/01/2023 1:25 PM Reason For Exam: cp No priors. The lungs are fully inflated and clear. Normal cardiomediastinal silhouette. Regional bony structures appear normal. Numerous surgical clips in the upper LEFT abdomen. IMPRESSION: 1. Negative chest.
[2023-08-01 12:17] VITALS: BP 172/104; PULSE 62; RESP 16; TEMP 36.6; O2SAT 98; BMI 38.5
--- NOTE | 2023-08-01 12:35 | ED_ITS ---
HPI - Arrhythmia/Palpitations 2 General: Chief Complaint: Arrhythmia/Palpitations Stated Complaint: low hr, chest tightness, dizzy Time Seen by Provider: 08/01/23 12:32 Source: patient Mode of arrival: ambulatory History of Present Illness: 72-year-old female presents emergency ro om complaining of bradycardia she is monitoring her heart rate at home with a pulse oximeter blood pressure cuff has been consistently in the upper 40s and 50s. No syncopal episodes but she has been dizzy at times. She has had intermittently some chest discomfort but nothing persistent nothing associated with radiation of pain into her neck or arms or shortness of breath. No other symptoms. She has noticed her blood pressure has been significantly elevated she has been taking all of her regular medications no recent changes. No history of any arrhythmias. Review of Systems 2 Const: Denies: fever(s) or chills Card: Denies: chest pain Resp: Denies: dyspnea GI: Denies: abdominal pain : Denies: dysuria, urinary frequency or urinary urgency Musc: Denies: neck pain or back pain Skin/Breast: Denies: rash PFSH ED 2 PFSH: Medical History Esophageal stricture Surgical History Hx of hysterectomy History of splenectomy Hx of cholecystectomy Family History Father CAD (coronary artery disease) Brother CAD (coronary artery disease) Cancer Social History Smoking and tobacco/nicotine status: never used tobacco/nicotine Alcohol intake: never Substance/Drug Use: never Physical Exam 2 Const: GENERAL APPEARANCE: cooperative and comfortable O RIENTATION/CONSCIOUSNESS: Yes awake, Yes oriented to person, Yes oriented to place and Yes oriented to time HENMT: COMMON NORMALS: normocephalic, atraumatic and hearing grossly normal bilaterally HEAD & SCALP: normocephalic and atraumatic Resp: COMMON NORMALS: normal respiratory effort, No retractions, No use of accessory muscles and clear to auscultation bilaterally AUSCULTATION: clear to auscultation bilaterally Cardio: COMMON NORMALS: regular rhythm and No murmurs present (Cardio) R ATE: bradycardic RHYTHM: regular rhythm GI: COMMON NORMALS: Soft to palpation and No hepatosplenomegaly present A USCULTATION: Yes normoactive bowel sounds PALPATION: Yes Soft to palpation, No Tenderness to palpation present (GI), No Guarding due to palpation present (GI) and Yes No hepatosplenomegaly present Extremity: COMMON NORMALS: normal to inspection, capillary refill normal, no clubbing, cyanosis or edema, no calf tenderness and no pedal edema Neuro: SENSORIUM/ORIENTATION: Yes oriented to person, Yes oriented to place and Yes oriented to time Skin: COMMON NORMALS: no rashes or lesions noted GENERAL SKIN EXAM: no rashes or lesions noted Course 2 Vital Signs: Vital signs: Vital Signs Temperature 97.9 F 08/01/23 12:17 Pulse Rate 52 L 08/01/23 15:30 Respiratory Rate 16 08/01/23 12:17 Blood Pressure 178/107 08/01/23 15:30 Pulse Oximetry 96 08/01/23 15:30 Oxygen Delivery Me thod Room Air 08/01/23 15:30 MDM - Arrhythmia/Palpitations Medical Decision Making EKG shows first-degree block and a sinus rhythm no acute ST changes cardiac enzymes negative. Patient blood pressure is actually elevated she is persistently bradycardic but not symptomatically so at this time. Will discharge her home add amlodipine 5 mg daily. She is not on any other negative inotropes. Will set her up for a 48-hour Holter monitor and follow-up with cardiology. Differential Diagnosis Likely palpitations Medical Records I reviewed the patient's medical records. Lab Data I reviewed the patient's lab results. 08/01/23 12:34 08/01/23 12:34 Laboratory Results WBC 12.59 10^3/uL (3.29-11.43) H 08/01/23 12:34 RBC 4.31 10^6/uL (3.85-5.65) 08/01/23 12:34 Hgb 14.90 g/dL (11.27-16.99) 08/01/23 12:34 Hct 45.1 % (36-47) 08/01/23 12:34 MCV 104.6 fl (85-98) H 08/01/23 12:34 MCH 34.6 pg (27-33) H 08/01/23 12:34 MCHC 33.0 g/dL (30-55) 08/01/23 12:34 RDW 14.0 % (12.1-15.1) 08/01/23 12:34 Plt Count 483 10^3/cmm (157-399) H 08/01/23 12:34 MPV 8.6 fL (7.4-10.4) 08/01/23 12:34 Neut % (Auto) 62.8 % 08/01/23 12:34 Lymph % (Auto) 30.6 % 08/01/23 12:34 [place] % (Auto) 5.0 % 08/01/23 12:34 Eos % (Auto) 0.5 % 08/01/23 12:34 Baso % (Auto) 0.5 % 08/01/23 12:34 Neut # (Auto) 7.92 10^3/uL (1.8-7.7) H 08/01/23 12:34 Lymph # (Auto) 3.9 10^3/uL (0.8-4.8) 08/01/23 12:34 [place] # (Auto) 0.6 10^3/uL (0.2-0.9) 08/01/23 12:34 Eos # (Auto) 0.1 10^3/uL (0.0-0.8) 08/01/23 12:34 Baso # (Auto) 0.1 10^3/uL (0.0-0.1) 08/01/23 12:34 Nucleated RBC % (auto) 0 % 08/01/23 12:34 Nucleated RBCs # 0.0 /100WBC 08/01/23 12:34 PT 13.30 SECONDS (12.1-14.9) 08/01/23 12:34 INR 0.98 (0.8-1.2) 08/01/23 12:34 Sodium 138 mmol/L (136-145) 08/01/23 12:34 Potassium 4.5 mmol/L (3.5-5.1) 08/01/23 12:34 Chloride 100 mmol/L (98-107) 08/01/23 12:34 Carbon Dioxide 26 mmol/L (22-29) 08/01/23 12:34 Anion Gap 16.5 (5-19) 08/01/23 12:34 BUN 25 mg/dL (8-23) H 08/01/23 12:34 Creatinine 1.1 mg/dL (0.5-0.9) H 08/01/23 12:34 GFR Calculation 49.1 mL/min (90-130) L 08/01/23 12:34 Glucose 90 mg/dL (65-115) 08/01/23 12:34 Calculated Osmolality 290 mOsm/kg (285-295) 08/01/23 12:34 Calcium 9.4 mg/dL (8.5-10.5) 08/01/23 12:34 Total Bilirubin 0.5 mg/dL (0.15-1.2) 08/01/23 12:34 AST 13 U/L (0-32) 08/01/23 12:34 ALT 11 U/L (0-33) 08/01/23 12:34 Alkaline Phosphatase 117 U/L (35-105) H 08/01/23 12:34 Troponin T Baseline 8 ng/L (0-10) 08/01/23 12:34 Troponin T 120 Minute 6.54 ng/L (0-10) 08/01/23 14:34 Delta Troponin T -1.46 ABS# (0-10) L 08/01/23 14:34 Total Protein 7.5 g/dL (6.6-8.7) 08/01/23 12:34 Albumin 4.2 g/dL (3.5-5.2) 08/01/23 12:34 Globulin 3.3 g/dL (1.3-4.6) 08/01/23 12:34 Lipase 39 U/L (13-60) 08/01/23 12:34 All radiology interpretation(s) finalized by discharge Discharge Plan Discharge Patient Disposition: Home Clinical Impression: Bradycardia, Hypertension Condition: Stable Prescriptions: New amlodipine 5 mg tablet 5 mg PO DAILY Qty: 30 0RF No Action hydroxyurea 500 mg capsule 500 mg PO DAILY zolpidem 5 mg PO BEDTIME anagrelide 1 mg capsule 1 mg PO DAILY (DME) Lace up ankle brace Qty: 1 0RF Rx Instructions: As directed (DME) Hinged Knee Brace See Rx Instructions .Route .MEDSUPPLY Qty: 1 0RF Rx Instructions: As directed lansoprazole 15 mg Capsule,Delayed Release(Dr/Ec) 30 mg PO QPM gabapentin 300 mg capsule 300 mg PO BEDTIME losartan-hydrochlorothiazide 50-12.5 mg Tablet 1 tab PO DAILY brimonidine-timolol 0.2-0.5 % drops 1 drp ophthalmic (eye) TID Vyzulta 0.024 % drops 1 drp ophthalmic (eye) BID Discharge Orders: Discharge ED (Routine); Ordered 08/01/23 Ordered By: Sebastian Angulo Referrals: Jannet Oates APRN [Primary Care Provider] - Discharge Diet: Usual diet Discharge Activity: Resume usual activity Patient Instructions: Opioid Safety, Pain Management Activity Restrictions/Additional Instructions: Thank you for choosing [facility] for your healthcare needs today. Please realize this is an emergency room and that we are providing you with a medical screening exam and this may not be complete and all inclusive of all the testing and or work up that you may need to determine your ailment or severity of your illness. It is very important that you follow up as instructed or that you return to the Emergency Department should you have concerns or if your condition changes or worsens in any way. You are seen today for low heart rate. Your blood pressure is elevated you do have a first-degree AV block which is generally benign. You are bradycardic but your blood pressure is actually high. Recommend you continue lisinopril hydrochlorothiazide add amlodipine 5 mg daily. Follow-up with your primary care doctor within the next week to recheck your blood pressure. Case management make arrangements for you to have a 48-hour Holter monitor and follow-up with cardiology. Coding Level of Care Code ED Elevator Attendant for Vicki Bernal
[2023-08-01 12:53] VITALS: BP 110/63; PULSE 55; O2SAT 99
[2023-08-01 12:57] LABS: Basophils # 0.1 10^3/uL (0.0-0.1); Basophils % 0.5 %; Eosinophils # 0.1 10^3/uL (0.0-0.8); Eosinophils % 0.5 %; Hematocrit 45.1 % (36-47); Lymphocytes # 3.9 10^3/uL (0.8-4.8); Lymphocytes % 30.6 %; Mean Corpuscular Hemoglobin 34.6 pg (27-33); Mean Corpuscular Volume 104.6 fl (85-98); Mean Platelet Volume 8.6 fL (7.4-10.4); Monocytes # 0.6 10^3/uL (0.2-0.9); Neutrophils # 7.92 10^3/uL (1.8-7.7); Neutrophils % 62.8 %; Nucleated Red Blood Cells % 0 %; Platelet Count 483 10^3/cmm (157-399); Red Blood Count 4.31 10^6/uL (3.85-5.65); White Blood Count 12.59 10^3/uL (3.29-11.43)
[2023-08-01 13:10] LABS: INR 0.98 (0.8-1.2)
[2023-08-01 13:14] VITALS: BP 182/91
[2023-08-01 13:16] LABS: Troponin(5th) Baseline 8 ng/L (0-10)
[2023-08-01 13:24] LABS: Alanine Aminotransferase 11 U/L (0-33); Albumin Level 4.2 g/dL (3.5-5.2); Alkaline Phosphatase 117 U/L (35-105); Anion Gap 16.5 (5-19); Aspartate Amino Transferase 13 U/L (0-32); Blood Urea Nitrogen 25 mg/dL (8-23); Calcium 9.4 mg/dL (8.5-10.5); Carbon Dioxide 26 mmol/L (22-29); Chloride 100 mmol/L (98-107); Globulin 3.3 g/dL (1.3-4.6); Glomerular Filtration Rate 49.1 mL/min (90-130); Glucose 90 mg/dL (65-115); Lipase 39 U/L (13-60); Osmolality Calculated 290 mOsm/kg (285-295); Potassium 4.5 mmol/L (3.5-5.1); Sodium 138 mmol/L (136-145); Total Bilirubin 0.5 mg/dL (0.15-1.2); Total Protein 7.5 g/dL (6.6-8.7)
--- NOTE | 2023-08-01 14:15 | ECG_ITS ---
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 Measurements Intervals [place] Rate: 49 P: -21 [place]: 225 QRS: 21 QRSD: 117 T: 50 QT: 424 QTc: 385 Interpretive Statements SINUS BRADYCARDIA WITH FIRST DEGREE AV BLOCK MODERATE INTRAVENTRICULAR CONDUCTION DELAY [110+ ms QRS DURATION] Compared to ECG 08/01/2023 12:34:33 First degree AV block now present Intraventricular conduction delay now present Electronically Signed On 08-03-2023 0:00:42 CDT by Charly Bloom M.D. [email or web address].[facility]um[facility] holmes [email or web address].[employer]/store/OM/[id number]
[2023-08-01 14:59] LABS: Troponin 5 2HR 6.54 ng/L (0-10)
[2023-08-01 15:19] LABS: Troponin 5 2HR Delta -1.46 ABS# (0-10)
[2023-08-01 15:30] VITALS: BP 178/107; PULSE 52; O2SAT 96
[2023-08-01 16:21] VITALS: BP 151/87; PULSE 53; O2SAT 97
--- NOTE | 2023-08-02 07:37 | DCPLANNER ---
Message sent to Cardiology for follow up-48 hr holter monitor request and kitty/hypertension
== END 2023-08-01 16:22 | disposition home or self-care (01) ==
PROVIDERS: Emergency Medicine; Emergency Provider Family Medicine; PCP Nurse Practitioner Family
DX: R00.1 Bradycardia, unspecified (principal); I10 Essential (primary) hypertension
CPT/HCPCS: 36415; 71045; 80053; 83690; 84484; 85025; 85610; 93005; 99285

== ENCOUNTER 2023-08-07 06:00 | Outpatient (RCR) | payer MEDICARE, SELFPAY | END 2023-09-05 23:59 | disposition home or self-care (01) | LOC: TPT 06:00 | PROVIDERS: PCP Nurse Practitioner Family; Visit Provider Specialist | DX: M25.562 Pain in left knee (principal) | CPT/HCPCS: 97110 ==

== ENCOUNTER → 2023-10-10 13:51 | Outpatient (BNVA) | payer MEDICARE, SELFPAY | PROVIDERS: PCP Nurse Practitioner Family; Visit Provider Internal Medicine Cardiovascular Disease | DX: R00.1 Bradycardia, unspecified (principal) | CPT/HCPCS: 99203 ==

== ENCOUNTER → 2023-11-03 08:45 | Outpatient (BNVA) | payer MEDICARE, SELFPAY | PROVIDERS: PCP Nurse Practitioner Family; Visit Provider Specialist | DX: M17.12 Unilateral primary osteoarthritis, left knee (principal) | CPT/HCPCS: 20610; J1100; J2795; J3301 ==

== ENCOUNTER → 2024-02-16 08:37 | Outpatient (BNVA) | payer MEDICARE, SELFPAY | PROVIDERS: PCP Nurse Practitioner Family; Visit Provider Specialist | DX: M17.12 Unilateral primary osteoarthritis, left knee (principal); Z71.89 Other specified counseling | CPT/HCPCS: 20610; J1100; J2795; J3301 ==

== ENCOUNTER → 2024-05-16 13:20 | Outpatient (BNVA) | payer MEDICARE, SELFPAY | PROVIDERS: PCP Nurse Practitioner Family; Visit Provider Specialist | DX: M17.12 Unilateral primary osteoarthritis, left knee (principal); Z71.89 Other specified counseling | CPT/HCPCS: 20610; J1100; J2795; J3301 ==

== ENCOUNTER → 2024-06-03 15:44 | Outpatient (BNVA) | payer MEDICARE, SELFPAY | PROVIDERS: PCP Nurse Practitioner Family; Visit Provider Specialist | DX: M17.11 Unilateral primary osteoarthritis, right knee | CPT/HCPCS: 20610; 73560; 73565; 99214; J1100; J2795; J3301 ==

== ENCOUNTER → 2024-08-16 09:33 | Outpatient (BNVA) | payer MEDICARE, SELFPAY | PROVIDERS: PCP Nurse Practitioner Family; Visit Provider Specialist | DX: M17.0 Bilateral primary osteoarthritis of knee (principal) | CPT/HCPCS: 20610; J1100; J2795; J3301; J9999 ==

== ENCOUNTER → 2024-10-23 09:14 | Outpatient (BNVA) | payer MEDICARE, SELFPAY | PROVIDERS: PCP Nurse Practitioner Family; Visit Provider Specialist | DX: M17.12 Unilateral primary osteoarthritis, left knee (principal) | CPT/HCPCS: 73560; 73565; 99214 ==

== ENCOUNTER 2025-03-31 15:31 | Oncology outpatient (recurring) (ONCR) | payer MEDICARE, SELFPAY ==
[2025-03-31 16:42] LABS: Hematocrit 43.9 % (36-47); Hemoglobin 14.10 g/dL (11.27-16.99); Mean Corpuscular HGB Conc 32.1 g/dL (30-55); Mean Corpuscular Hemoglobin 31.1 pg (27-33); Mean Corpuscular Volume 96.9 fl (85-98); Nucleated Red Blood Cells % 0 %; Platelet Count 346 10^3/cmm (157-399); Red Blood Count 4.53 10^6/uL (3.85-5.65); White Blood Count 11.63 10^3/uL (3.29-11.43)
[2025-03-31 17:11] LABS: Alanine Aminotransferase 8 U/L (0-33); Albumin Level 3.8 g/dL (3.5-5.2); Alkaline Phosphatase 119 U/L (35-105); Anion Gap 14.2 (5-19); Aspartate Amino Transferase 14 U/L (0-32); Blood Urea Nitrogen 16 mg/dL (8-23); Calcium 8.9 mg/dL (8.5-10.5); Carbon Dioxide 24 mmol/L (22-29); Chloride 104 mmol/L (98-107); Globulin 3.5 g/dL (1.3-4.6); Glucose 103 mg/dL (65-115); Osmolality Calculated 287 mOsm/kg (285-295); Potassium 4.2 mmol/L (3.5-5.1); Sodium 138 mmol/L (136-145); Total Protein 7.3 g/dL (6.6-8.7)
== END 2025-04-06 23:59 | disposition home or self-care (01) ==
PROVIDERS: PCP Nurse Practitioner Family; Visit Provider Internal Medicine Medical Oncology
DX: R91.1 Solitary pulmonary nodule (principal); D47.3 Essential (hemorrhagic) thrombocythemia
CPT/HCPCS: 36415; 80053; 85025; 99204

== ENCOUNTER → 2025-04-07 08:04 | Outpatient (BNVA) | payer MEDICARE, SELFPAY | PROVIDERS: PCP Nurse Practitioner Family; Visit Provider Specialist | DX: M17.12 Unilateral primary osteoarthritis, left knee (principal) | CPT/HCPCS: 73560; 73565; 99214 ==

== ENCOUNTER 2025-04-22 14:28 | Oncology outpatient (recurring) (ONCR) | payer MEDICARE, SELFPAY ==
--- NOTE | 2025-04-22 15:00 | CT_ITS ---
WS: [id number] CT LEFT KNEE, NONCONTRAST TECHNIQUE: Noncontrast CT of the LEFT knee to include the LEFT hip and ankle. CLINICAL INFORMATION: PER [facility] PROTOCOL DLP: 955.[address] scans at [facility] use at least one of these dose optimization techniques: automated exposure control; mA and/or kV adjustment per patient size (includes targeted exams where dose is matched to clinical indication); or iterative reconstruction. FINDINGS: Sigmoid diverticulosis. Moderate tricompartmental arthritis LEFT knee. Joint space narrowing worse in the medial joint compartment. Small suprapatellar effusion. Small lobulated popliteal cyst. Hypertrophic patella. Vascular calcification. CT/CT knee LT [facility] [id number] IMPRESSION: Images obtained for preoperative purposes.
== END 2025-05-07 23:59 | disposition home or self-care (01) ==
PROVIDERS: Absent Provider Specialist; PCP Nurse Practitioner Family; Visit Provider Internal Medicine Medical Oncology
DX: R91.1 Solitary pulmonary nodule (principal); D47.3 Essential (hemorrhagic) thrombocythemia; M17.12 Unilateral primary osteoarthritis, left knee
CPT/HCPCS: 73700